=== PATIENT | male | born 1990 | race Caucasian/White ===

== ENCOUNTER 2022-07-05 08:46 | Day surgery (SDC) | payer OTHER ==
[~2022-07-05] VITALS: Ht 185.4 cm; Wt 91.2 kg
[2022-07-05 09:35] LABS: BASO # 0.1 10^3/uL (0.0-0.2); BASO % 0.6 % (0.0-1.0); EOS # 0.2 10^3/uL (0.0-0.5); EOS % 2.1 % (0.0-3.0); HEMOGLOBIN 15.9 g/dl (13.5-17.5); LYMPH # 3.9 10^3/uL (1.5-5.0); LYMPH % 38.2 % (24.0-44.0); MEAN CORPUSCULAR HEMOGLOBIN 30.2 pg (27.0-33.0); MEAN CORPUSCULAR HGB CONC 33.8 g/dl (32.0-36.5); MEAN CORPUSCULAR VOLUME 89.4 fl (80.0-96.0); MONO # 0.8 10^3/uL (0.0-0.8); MONO % 7.7 % (2.0-8.0); NEUTROPHILS # 5.2 10^3/uL (1.5-8.5); NEUTROPHILS % 51.1 % (36.0-66.0); PLATELET COUNT, AUTOMATED 178 10^3/uL (150-450); RED BLOOD COUNT 5.26 10^6/uL (4.30-6.10); WHITE BLOOD COUNT 10.2 10^3/uL (4.0-10.0)
[2022-07-05] MEDS ORDERED: HYDROMORPHONE HCL 0.5 MG/ 0.5 ML SYRINGE IV PRN (09:55)
[2022-07-05 09:58] LABS: BLOOD UREA NITROGEN 18 MG/DL (9-23); CARBON DIOXIDE LEVEL 27 MMOL/L (20-31); CHLORIDE LEVEL 109 MMOL/L (98-107); CREATININE FOR GFR 0.91 MG/DL (0.70-1.30); GLOMERULAR FILTRATION RATE > 60.0 (>60); GLUCOSE, FASTING 86 MG/DL (60-100); POTASSIUM SERUM 3.7 MMOL/L (3.5-5.1); SODIUM LEVEL 142 MMOL/L (136-145)
[2022-07-05 10:09] LABS: RSV AMPLIFICATION NEGATIVE (NEGATIVE)
[2022-07-05] MEDS ORDERED: LIDOCAINE 2% 5ML JELLY UROJET TOP ONE (10:30)
[2022-07-05] MEDS ORDERED: CETI10TA4 PO (11:27)
[2022-07-05] MEDS ORDERED: CIPR-249 PO (11:27)
[2022-07-05] MEDS ORDERED: PRED20TA PO (11:27)
[2022-07-05] MEDS ORDERED: HOME MED LIST COMPLETE! XX SCH (11:30)
[2022-07-05] MEDS ORDERED: KETOROLAC 60MG 2ML VIAL As Ordered ONE (11:37)
[2022-07-05] MEDS ORDERED: ONDANSETRON 4MG 2ML VIAL As Ordered ONE (11:37)
[2022-07-05] MEDS ORDERED: LIDOCAINE 2% 100MG/5ML SDV (FOR ANES.) As Ordered ONE (11:37)
[2022-07-05] MEDS ORDERED: propofoL 200 MG/20 ML VIAL As Ordered ONE (11:37)
[2022-07-05] MEDS ORDERED: fentaNYL 100 MCG/2 ML INJECTION As Ordered ONE (11:38)
[2022-07-05] MEDS ORDERED: MIDAZOLAM INJ 2MG/2ML VIAL As Ordered ONE (11:38)
[2022-07-05] MEDS ORDERED: LIDOCAINE 2% 5ML JELLY UROJET As Ordered ONE (12:03)
[2022-07-05] MEDS ORDERED: ceFAZolin 1GM VIAL As Ordered ONE (12:15)
[2022-07-05] MEDS ORDERED: fentaNYL 100 MCG/2 ML INJECTION IV PRN (12:40)
[2022-07-05] MEDS ORDERED: METOCLOPRAMIDE INJ 10MG/2ML VIAL IV PRN (12:40)
[2022-07-05] MEDS ORDERED: ONDANSETRON 4MG 2ML VIAL IV PRN (12:40)
[2022-07-05] MEDS ORDERED: LR 1,000 ML IV SCH (12:40)
[2022-07-05] MEDS ORDERED: oxyCODONE 5MG TAB PO PRN (12:40)
[2022-07-05] MEDS: HYDROMORPHONE HCL 0.5 MG/ 0.5 ML SYRINGE IV PRN ×2 (12:54→12:59)
[2022-07-05] MEDS ORDERED: ACETAMINOPHEN 1000MG 100ML IV BAG IV ONE (13:20)
[2022-07-05] MEDS ORDERED: oxyBUTYnin 5 MG TAB PO STA (13:28)
[2022-07-05] MEDS ORDERED: PERCOCET 5MG/325MG TAB PO PRN (13:45)
[2022-07-05 15:00] VITALS: BP 157/83
== END 2022-07-05 15:30 | disposition home or self-care (01) ==
LOC: M ED 08:46 → M SDC 08:47
PROVIDERS: ATTEND Urology
DX: N35.919 Unspecified urethral stricture, male, unspecified site (principal)
CPT/HCPCS: 52276; 74176; 80048; 81001; 82365; 85025; 87086; 87631; 96374; 99284; C1769; J0131; J0690; J1100; J1170; J1885; J2250; J2405; J3010